=== PATIENT | male | born 1980 | race Caucasian/White ===

== ENCOUNTER 2016-07-03 17:25 | Emergency (ER) | payer SELFPAY ==
[~2016-07-03] VITALS: Ht 182.9 cm; Wt 90.7 kg
[2016-07-03 17:29] VITALS: BP 167/94
--- NOTE | 2016-07-03 18:26 | PHYS DOC ---
Past Medical History Past Medical History: Hypertension Additional Past Medical Histor: Previous MRSA hospitalization Past Surgical History: Other Additional Past Surgical Histo: Dental implants,R)tib fx repair. Alcohol Use: Rarely Drug Use: None Adult General Chief Complaint Chief Complaint: WRIST PAIN [facility] HPI Patient is a 35 year old male presents emergency department stating that he was trying to move a soda vending machine yesterday with him in 3 other people. He states that the incident machine causes increased pain to his right wrist as he had to maneuver around. Patient states he has not taken anything for the pain and discomfort. He states that he has some swelling around the wrist area. He is right-hand dominant. Patient is tender over the scaphoid area. Review of Systems Review of Systems Constitutional: Denies fever or chills [] Eyes: Denies change in visual acuity, redness, or eye pain [] HENT: Denies nasal congestion or sore throat [] Respiratory: Denies cough or shortness of breath [] Cardiovascular: No additional information not addressed in HPI [] GI: Denies abdominal pain, nausea, vomiting, bloody stools or diarrhea [] : Denies dysuria or hematuria [] Musculoskeletal: Denies back pain. Left wrist pain and discomfort Integument: Denies rash or skin lesions [] Neurologic: Denies headache, focal weakness or sensory changes [] Allergies Allergies Allergies Coded Allergies Type Severity Reaction Last Updated Verified Cephalexin Monohydrate Allergy Intermediate 09/23/13 Yes Physical Exam Physical Exam Constitutional: Well developed, well nourished, no acute distress, non-toxic appearance. [] HENT: Normocephalic, atraumatic, bilateral external ears normal, oropharynx moist, no oral exudates, nose normal. [] Eyes: PERRLA, EOMI, conjunctiva normal, no discharge. [] Neck: Normal range of motion, no tenderness, supple, no stridor. [] Cardiovascular:Heart rate regular rhythm Lungs & Thorax: no respiratory distress noted Skin: Warm, dry, no erythema, no rash. [] Back: No tenderness Extremities: Left wrist tenderness noted on over the scaphoid area, no cyanosis , no clubbing, ROM intact, no edema. Peripheral pulses 2+ cap refill brisk less than 2 seconds. Range of motion is with the hand with equal remote pilot operator noted. Neurologic: Alert and oriented X 3, normal motor function, normal sensory function, no focal deficits noted. [] Psychologic: Affect normal, judgement normal, mood normal. [] Current Patient Data Vital Signs Vital Signs Date Time Temp Pulse Resp B/P Pulse Ox O2 Delivery O2 Flow Rate FiO2 07/03/16 17:29 98.5 95 18 99 Room Air 98.5 EKG EKG [] Radiology/Procedures Radiology/Procedures [] Course & Med Decision Making Course & Med Decision Making Pertinent Labs and Imaging studies reviewed. (See chart for details) Questionable area of the scaphoid per Dr. Marshall. Patient will be placed in a volar splint with recommendations to follow-up with orthopedic. Ibuprofen 800 mg every 8 hours. Recommended ice packs on 20 minutes off 20 minutes several times a day. Patient will be provided with orthopedic name and number to follow up with as mentioned. Elevation as much as possible. Patient was provided with signs and symptoms to return back to emergency department. Patient agrees with discharge instructions treatment regimens and follow-up recommendations. [] Dragon Disclaimer Dragon Disclaimer This electronic medical record was generated, in whole or in part, using a voice recognition dictation system. Departure Departure Impression: Primary Impression: Left wrist fracture Disposition: HOME, SELF-CARE Condition: STABLE Referrals: NO PCP (PCP) MIKE KENNEY MD Patient Instructions: Splint Care, [id number], Wrist Fracture Additional Instructions: Home to rest Keep the splint in place until followup Keep the splint clean and dry Ice packs on 20 minutes and off 20 minutes several time a day Elevation as much as possible Followup with orthopedic in 5-7 days Return to emergency department as needed for signs and symptoms that become worse. Splinting Splinting : Location: left wrist Splint: volar Pre-Proc Neuro Vasc Exam: normal Post-Proc Neuro Vasc Exam: normal ALFREDO CRABTREE NP Jul 03, 2016 18:25
[2016-07-03] MEDS ORDERED: IBUPROFEN 800 MG TABLET. PO ONE (18:45)
--- NOTE | 2016-07-04 08:50 | RAD ---
Left wrist, 3 views, 07/03/2016: History: Wrist injury, pain No fracture or dislocation is identified. There is moderate diffuse soft tissue swelling about the wrist. IMPRESSION: No acute bony abnormality is detected.
== END 2016-07-03 18:55 | disposition home or self-care (01) ==
LOC: ER 17:25
DX: S62.002A Unspecified fracture of navicular [scaphoid] bone of left wrist, initial encounter for closed fracture (principal); I10 Essential (primary) hypertension; Z88.1 Allergy status to other antibiotic agents; X58.XXXA Exposure to other specified factors, initial encounter; Y93.89 Activity, other specified; Y99.8 Other external cause status; Y92.89 Other specified places as the place of occurrence of the external cause
CPT/HCPCS: 29125; 73110; 99284-25

== ENCOUNTER 2016-09-03 21:44 | Inpatient (IN) | payer SELFPAY ==
[~2016-09-03] VITALS: Ht 180.3 cm; Wt 86.2 kg
[2016-09-03] MEDS ORDERED: ASPIRIN 81 MG TAB.CHEW PO ONE (22:00)
[2016-09-03] MEDS: NITROGLYCERIN SUBLINGUAL 0.4 MG BOTTLE OF 25. SL PRN ×3 (22:07→22:37)
--- NOTE | 2016-09-03 22:19 | PHYS DOC ---
Past Medical History Past Medical History: Hypertension Additional Past Medical Histor: Previous MRSA hospitalization, ENDOCARDITIS Past Surgical History: Tonsillectomy, Other Additional Past Surgical Histo: Dental implants,R)tib fx repair. Alcohol Use: Rarely Drug Use: None Adult General Chief Complaint Chief Complaint: CHEST PAIN HPI HPI Patient is a 35 year old male who presents with chest pain. Patient reports that for the past week he has been having intermittent chest discomfort. 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 Pain accompanied by SOB. Patient reports symptoms similar to past when he had endocarditis. He denies any fever. Patient also has h/o IV drug abuse, but says it has been more than a year since he did this. Review of Systems Review of Systems Constitutional: Denies fever or chills Eyes: Denies change in visual acuity or eye pain HENT: Denies nasal congestion or sore throat Respiratory:Shortness of breath. Denies cough Cardiovascular: L side throbbing chest pain radiating to LUE GI: Denies abdominal pain, nausea, vomiting, bloody stools or diarrhea : Denies dysuria or hematuria Musculoskeletal: Denies back pain or joint pain Integument: Denies rash or skin lesions Neurologic: Denies headache, focal weakness or sensory changes Current Medications Current Medications Current Medications Medications (Trade) Dose Ordered Sig/Andrae Start Time Stop Time Status Last Admin Dose Admin Aspirin (Children'S Aspirin) 324 mg 1X ONCE 09/03/16 22:00 09/03/16 22:01 DC 09/03/16 22:06 324 MG Fentanyl Citrate (Fentanyl 5ml Vial) 5 mcg 1X ONCE 09/03/16 22:45 09/03/16 22:46 DC Heparin Sodium (Porcine) 10,000 unit STK-MED ONCE 09/03/16 22:32 09/03/16 22:33 DC Heparin Sodium (Porcine) 2150 unit 2,150 unit PRN Q6HRS PRN 09/03/16 22:45 Heparin Sodium/ Dextrose 500 ml @ As Directed STK-MED ONCE 09/03/16 22:29 09/03/16 22:30 DC Heparin Sodium/ Sodium Chloride 1,000 unit 1X ONCE 09/03/16 22:45 09/03/16 22:46 DC Iohexol (Omnipaque 300 Mg/ml) 100 ml 1X ONCE 09/03/16 22:45 09/03/16 22:46 DC Lidocaine HCl 20 ml 1X ONCE 09/03/16 22:45 09/03/16 22:46 DC Midazolam HCl (Versed) 5 mg 1X ONCE 09/03/16 22:45 09/03/16 22:46 DC Nitroglycerin (Nitrostat) 0.4 mg PRN Q5MIN PRN 09/03/16 22:00 09/04/16 03:00 DC 09/03/16 22:37 0.4 MG Allergies Allergies Allergies Coded Allergies Type Severity Reaction Last Updated Verified Cephalexin Monohydrate Allergy Intermediate 09/23/13 Yes acetaminophen Allergy Unknown Swelling 09/03/16 Yes Physical Exam Physical Exam Constitutional: Well developed, well nourished, non-toxic appearance HENT: Normocephalic, atraumatic, bilateral external ears normal Eyes: EOMI, conjunctiva normal, no discharge Neck: Normal range of motion, no stridor Cardiovascular: Heart rate normal, regular rhythm, no murmur Lungs & Thorax: Bilateral breath sounds clear to auscultation Abdomen: Bowel sounds normal, soft, non-distended, no TTP Skin: Warm, dry, no erythema, no rash Extremities: No obvious deformity, no edema Neurologic: Alert and oriented X 3, no gross deficits noted Psychologic: Affect normal, judgement normal, mood normal Current Patient Data Vital Signs Vital Signs Date Time Temp Pulse Resp B/P Pulse Ox O2 Delivery O2 Flow Rate FiO2 09/03/16 23:00 106 130/63 95 Room Air 09/03/16 21:50 98.3 18 98.3 Lab Values Laboratory Tests Test 09/03/16 22:14 09/03/16 22:17 09/03/16 22:22 09/03/16 22:30 POC Troponin I 0.00ng/ml (<0.08) POC Hemoglobin 16.0g/dL (14-18) POC Hematocrit 47% (37-52) POC Sodium 138mmol/L (135-145) POC Potassium 3.9mmol/L (3.5-5.0) POC Chloride 100mmol/L (98-110) POC Total CO2 24mmol/L (23-32) Anion Gap 19mmol/L (6-14) H 8 (6-14) POC Blood Urea Nitrogen 9mg/dL (8-26) POC Creatinine 0.9mg/dL (0.5-1.4) Glucose Level 97mg/dL (70-99) 100mg/dL (70-99) H POC Ionized Calcium (Ana) 1.12mmol/L (1.13-1.32) L White Blood Count 12.8x10^3/uL (4.0-11.0) H Red Blood Count 4.97x10^6/uL (4.30-5.70) Hemoglobin 13.6g/dL (13.0-17.5) Hematocrit 41.0% (39.0-53.0) Mean Corpuscular Volume 83fL (79-100) Mean Corpuscular Hemoglobin 27pg (25-35) Mean Corpuscular Hemoglobin Concent 33g/dL (31-37) Red Cell Distribution Width 16.4% (11.5-14.5) H Platelet Count 252x10^3/uL (140-400) Neutrophils (%) (Auto) 81% (31-73) H Lymphocytes (%) (Auto) 13% (24-48) L Monocytes (%) (Auto) 5% (0-9) Eosinophils (%) (Auto) 0% (0-3) Basophils (%) (Auto) 1% (0-3) Neutrophils # (Auto) 10.3x10^3uL (1.8-7.7) H Lymphocytes # (Auto) 1.6x10^3/uL (1.0-4.8) Monocytes # (Auto) 0.6x10^3/uL (0.0-1.1) Eosinophils # (Auto) 0.1x10^3/uL (0.0-0.7) Basophils # (Auto) 0.1x10^3/uL (0.0-0.2) Sodium Level 136mmol/L (136-145) Potassium Level 3.7mmol/L (3.5-5.1) Chloride Level 101mmol/L (98-107) Carbon Dioxide Level 27mmol/L (21-32) Blood Urea Nitrogen 11mg/dL (8-26) Creatinine 1.0mg/dL (0.7-1.3) Estimated GFR (Cockcroft-Gault) 84.5 Lactic Acid Level 1.0mmol/L (0.4-2.0) Calcium Level 9.2mg/dL (8.5-10.1) Troponin I Quantitative < 0.017ng/mL (0.000-0.055) Prothrombin Time 13.9SEC (11.7-14.0) Prothrombin Time INR 1.1 (0.8-1.1) PTT 116SEC (24-38) H Laboratory Tests 09/03/16 22:22 Laboratory Tests 09/03/16 22:17 09/03/16 22:22 EKG EKG EKG (my read): sinus rhythm, rate 100, normal axis, intervals wnl, ST elevation leads V2/avL Radiology/Procedures Radiology/Procedures CXR (my read): No acute abnormality Course & Med Decision Making Course & Med Decision Making Pertinent Labs and Imaging studies reviewed. (See chart for details) Patient is 35-year-old male who presents with chest pain and shortness of breath. EKG concerning, initially activated as STEMI. Aspirin, nitroglycerin, heparin ordered. EKG, chest x-ray, labs ordered to evaluate. After speaking with Drs. Dexter and Nathalia (after both had reviewed EKG), decision made to cancel STEMI activation. Will continue heparin gtt overnight. Discussed plan with patient, who pain is improved after nitro. Patient without fever while in the emergency department; however once he reached the floor he spiked a fever, so I ordered penicillin G and ceftriaxone to cover for possible infectious endocarditis. After discussion with pharmacy ([facility]), will change this to vancomycin. Discussed with Dr. Parks, will admit under his care for further evaluation and treatment. Dragon Disclaimer Dragon Disclaimer This electronic medical record was generated, in whole or in part, using a voice recognition dictation system. Departure Departure Impression: Primary Impression: Chest pain Additional Impressions: SOB (shortness of breath) Abnormal EKG Disposition: ADMITTED INPATIENT Admitting Physician: Viviana Parks Condition: STABLE Referrals: NO PCP (PCP) Problem Qualifiers ANA STERLING MD Sep 03, 2016 22:19
[2016-09-03 22:22] LABS: POTASSIUM ISTAT 3.9 mmol/L (3.5-5.0)
[2016-09-03] MEDS ORDERED: HEPARIN 25,000UTS/500ML PREMIX 500 ML IV ONE (22:29)
[2016-09-03] MEDS ORDERED: HEPARIN for IV BOLUS 10,000 UNIT/10 ML VIAL. ONE ×2 (22:29→22:32)
[2016-09-03] MEDS ORDERED: LIDOCAINE 2% 20 ML VIAL. ONE (22:32)
[2016-09-03] MEDS ORDERED: FENTANYL PF 250 MCG/5 ML VIAL. ONE (22:32)
[2016-09-03] MEDS ORDERED: MIDAZOLAM HCL/PF 5 MG/5 ML VIAL ONE (22:33)
[2016-09-03] MEDS ORDERED: IOHEXOL 300 MG/ML 100ML VIAL. ONE (22:34)
[2016-09-03 22:37] LABS: BASO # 0.1 x10^3/uL (0.0-0.2); BASO % 1 % (0-3); EOS % 0 % (0-3); HEMOGLOBIN 13.6 g/dL (13.0-17.5); LYMPH # 1.6 x10^3/uL (1.0-4.8); LYMPH % 13 % (24-48); MEAN CORPUSCULAR HEMOGLOBIN 27 pg (25-35); MEAN CORPUSCULAR HGB CONC 33 g/dL (31-37); MEAN CORPUSCULAR VOLUME 83 fL (79-100); MONO % 5 % (0-9); NEUT % 81 % (31-73); PLATELET COUNT 252 x10^3/uL (140-400); RED BLOOD COUNT 4.97 x10^6/uL (4.30-5.70); RED CELL DISTRIBUTION WIDTH 16.4 % (11.5-14.5); WHITE BLOOD COUNT 12.8 x10^3/uL (4.0-11.0)
[2016-09-03] MEDS ORDERED: HEPARIN for IV BOLUS 10,000 UNIT/10 ML VIAL. IV PRN (22:45)
[2016-09-03] MEDS ORDERED: IOHEXOL 300 MG/ML 100ML VIAL. IART ONE (22:45)
[2016-09-03] MEDS ORDERED: HEPARIN for IV BOLUS 10,000 UNIT/10 ML VIAL. IV ONE (22:45)
[2016-09-03] MEDS ORDERED: HEPARIN 25,000UTS/500ML PREMIX 500 ML IV PRN (22:45)
[2016-09-03] MEDS ORDERED: FENTANYL PF 250 MCG/5 ML VIAL. IV ONE (22:45)
[2016-09-03] MEDS ORDERED: LIDOCAINE 2% 20 ML VIAL. IJ ONE (22:45)
[2016-09-03] MEDS ORDERED: MIDAZOLAM HCL/PF 5 MG/5 ML VIAL IV ONE (22:45)
[2016-09-03 22:56] LABS: CALCIUM 9.2 mg/dL (8.5-10.1); GFR 84.5; POTASSIUM 3.7 mmol/L (3.5-5.1)
[2016-09-03 23:02] LABS: INR 1.1 (0.8-1.1); PROTHROMBIN TIME PATIENT 13.9 SEC (11.7-14.0)
[2016-09-03] MEDS ORDERED: MORPHINE SULFATE 4 MG/ML DISP.SYRIN. IV ONE (23:15)
[2016-09-03] MEDS ORDERED: ONDANSETRON PF 4 MG/2 ML VIAL. IV PRN (23:30)
[2016-09-03] MEDS ORDERED: NITROGLYCERIN SUBLINGUAL 0.4 MG BOTTLE OF 25. SL PRN (23:30)
[2016-09-04] VITALS (9 sets, daily range): BP systolic 135–151; BP diastolic 81–101
--- NOTE | 2016-09-04 00:03 | ACF ---
Admission Forms Criteria CARDIOLOGY GRG Clinical Indications for Admission to Inpatient Care ( Place 'X' for any and all applicable criteria): Hospital admission is needed for appropriate care of the patient because of ANY ONE of the following (1): [ ] I. Hemodynamic instability as indicated by ALL of the following (1)(2)(3) (4)(5) [ ]a) Vital signs or other findings not as expected for chronic patient condition or baseline [ ]b) Instability indicated by ANY ONE of the following: [ ]i) Hypotension [ ]ii) Symptomatic Tachycardia unresponsive to treatment ( e.g., analgesia, fluids, sedation as indicated) [ ]iii) Inadequate perfusion indicated by ANY ONE of the following: [ ] 1) Lactic acidosis (> 2 mmol/L) [ ] 2) New abnormal capillary refill (> 3 seconds) [ ] 3) Reduced urine output [ ] 4) New altered mental status [ ]iv) Orthostatic vital sign changes unresponsive to treatment (e.g., fluids) [ ]v) IV inotropic or vasopressor medication required to maintain adequate blood pressure or perfusion [ ] II. Severe heart failure as indicated by ANY ONE of the following(17)(18) [ ]a) Respiratory distress [ ]b) Hypotension [ ]c) Anasarca (refractory to outpatient therapy) [ ]d) Cardiac arrhythmias of immediate concern [ ]e) Myocardial ischemia [ ] III. Cardiac arrhythmias or findings of immediate concern indicated by ANY ONE of the following (19)(20): [ ] a) Heart rhythms that are inherently dangerous or unstable indicated by ANY ONE of the following (21)(22)(23): [ ] i) Resuscitated ventricular fibrillation or cardiac arrest [ ] ii) Ventricular escape rhythm [ ] iii) Sustained ventricular tachycardia (30 seconds or more of ventricular rhythm at greater than 100 beats per minute) [ ] iv) Nonsustained ventricular tachycardia and ANY ONE of the following: [ ] 1) Suspected cardiac ischemia as cause or consequence of ventricular tachycardia [ ] 2) In setting of acute myocarditis [ ] b) Unstable cardiac conduction defects indicated by ANY ONE of the following(23)(24)(25) [ ] i) Type II second-degree atrioventricular block [ ]ii) Third-degree atrioventricular block [ ]iii) New-onset left bundle branch block with suspected myocardial ischemia [ ]c) Any heart rhythm and ANY ONE of the following (21)(22)(26)(27) (28) [ ] i) Continuous long-term ECG monitoring needed (e.g., initiation of drug requiring monitoring for more than 24 hours) [ ] ii) Patient has automatic implanted cardioverter defibrillator that is repeatedly firing, malfunctioning, or in need of immediate adjustment of settings beyond the scope of ambulatory or observation care [ ]d) Heart rhythms of concern due to ANY ONE of the following: [ ] i) Hypotension [ ] ii) Respiratory distress [ ] iii) Association with other significant symptoms (e.g., bradycardia with syncope or ongoing dizziness, supraventricular tachycardia with chest pain (14)(15)(17) [ ] IV. Monitoring for cardiac contusion beyond the scope of observation care needed [A](30)(31)(32) [ ] V. Surgical or device complication (e.g., valve replacement complication , pacemaker dysfunction) (35)(41)(44)(45)(46) [ ] . Inpatient palliative care needed. [B](49) Also use Inpatient Palliative Care Criteria [ ] VII. Nonbacterial thrombotic (marantic) endocarditis (36)(43)(47)(48) [X] VIII. Cardiology condition, symptom, or finding for which emergency and observation care has failed or are not considered appropriate. [ ] IX. Acute valvular disease requiring inpatient as indicated by ANY ONE of the following (41) [ ]a) Acute valvular regurgitation (42) [ ]b) Noninfectious valvulitis (43) [ ]c) Obstructive valve thrombosis [ ]d) Paravalvular leak [ ]e) Other significant valvular disorder remaining after emergency or observation level of care (as appropriate) [ ]X. Pericardial disease requiring inpatient treatment as indicated by ANY ONE of the following (33)(34)(35)(36)(37) [ ]a) Suspected tamponade (38)(39)(40) [ ]b) Hemopericardium [ ]c) Other significant pericardial disorder remaining after emergency or observation level of care (as appropriate) [ ] XI. Cardiac ischemia beyond scope of emergency and observation care. [ ] XII. Hypertension requiring inpatient treatment as indicated by ANY ONE of the following (6)(7)(8) [ ]a) SBP greater than 220 mm Hg or DBP greater than 120 mmHg despite treatment [ ]b) SBP greater than 140 mm Hg or DBP greater than 100 mm Hg with evidence of acute end organ damage as indicated by ANY ONE of the following [ ] i) Encephalopathy [ ] ii) Acute renal failure as indicated by new onset of ANY ONE of the following (9)(10)(11)(12)(13) [ ]1) 3-fold rise in serum creatinine from baseline [ ]2) Serum creatinine greater than 4 mg/dL ( 354 micromoles/L) with acute rise greater than 0.5 mg/dL (44.2 micromoles/L) [ ]3) Reduction of more than 75% in estimated glomerular filtration rate from baseline [ ]4) Estimated glomerular filtration rate less than 35 mL/min/1.73m2 (0.59 mL/sec/1.73m2) in child up to 18 years of age [ ]5) Cessation of urine output indicated by ALL of the following [ ]A. Adequate volume status [ ]B. Inadequate urine output as indicated by ANY ONE of the following [ ]a. Urine output less than 0.3 mL/kg/hr for 24 hours [ ]b. Anuria (urine output less than 0.1 mL/kg/hr) for 12 hours [ ] iii) Aortic dissection [ ] iv) Myocardial Ischemia [ ] v) Left ventricular heart failure [ ]vi) Retinal Hemorrhage [ ]vii) Other significant finding [ ]c) Hypertension in child requiring inpatient treatment as indicated by ALL of the following(14)(15)(16) [ ] i) Outpatient treatment not effective, not available, or not appropriate [ ]ii) SBP or DBP greater than 95th percentile for age [ ]iii) Evidence of acute end organ damage as indicated by ANY ONE of the following [ ]1) Altered mental status [ ]2) Acute renal failure as indicated by new onset of ANY ONE of the following(9)(10)(11)(12)(13) [ ]A. 3-fold rise in serum creatinine from baseline [ ]B. Serum creatinine greater than 4 mg/dL (354 micromoles/L) with acute rise greater than 0.5 mg/dL (44.2 micromoles/L) [ ]C. Reduction of more than 75% in estimated glomerular filtration rate from baseline [ ]D. Estimated glomerular filtration rate less than 35 mL/min/1.73m2 (0.59 mL/sec/1.73m2) in child up to 18 years of age [ ]E. Cessation of urine output indicated by ALL of the following [ ]a. Adequate volume status [ ]b. Inadequate urine output as indicated by ANY ONE of the following [ ]i) Urine output less than 0.3 mL/kg/hr for 24 hours [ ]ii) Anuria ( urine output less than 0.1 mL/kg/hr) for 12 hours [ ]3) Severe headache [ ]4) Visual disturbance [ ]5) Retinal hemorrhage [ ]6) Other significant finding [ ]XIII. Complications of transplanted heart indicated by ANY ONE of the following(61): [ ]a) Acute graft rejection requiring inpatient management (eg, intravenous immunosuppression)(62)(63) [ ]b) Acute graft heart failure indicated by ANY ONE of the following(64): [ ]i) Hemodynamic instability [ ]ii) Cardiac arrhythmias of immediate concern [ ]iii) Pulmonary edema that is very severe (eg, mechanical ventilation needed, imminent or likely, need for 100% oxygen to keep oxygen saturation above 90%) [ ]iv) Pulmonary edema that is persistent as indicated by ALL of the following: [ ]1) New need for oxygen therapy to keep oxygen saturation above 90% (or increased FiO2 need from baseline) [ ]2) Has not improved sufficiently with emergency department or observation care IV diuretics or other heart failure treatments[E] [ ]v) Altered mental status that is severe or persistent [ ]vi) Increased creatinine (new on laboratory test) with reduction of more than 50% in estimated glomerular filtration rate from baseline [ ]vii) Progressively (ongoing) rising creatinine (known from past laboratory test) with reduction of more than 25% in estimated glomerular filtration rate from baseline [ ]viii) Acute renal failure [ ]ix) Acute peripheral ischemia (eg, examination shows pulseless, cool, mottled, or cyanotic extremity) [ ]x) Pulmonary artery catheter monitoring needed [ ]xi) Other sign or symptom of heart failure requiring inpatient treatment (ie, too severe or not responsive to outpatient and observation care treatment) [ ]c) Infection requiring inpatient management (eg, Hemodynamic instability, need for intravenous antimicrobial treatment)(66)(67)(68)(69)(70) [ ]d) Cardiac allograft vasculopathy requiring inpatient management ( eg evidence of cardiac ischemia)(71) [ ]e) Other complication of transplanted heart (eg, stroke, severe pulmonary hypertension, severe valvular dysfunction) requiring inpatient management(72) The original [facility] content created by [facility] has been revised. The portions of the content which have been revised are identified through the use of italic text or in bold, and [facility] has neither reviewed nor approved the modified material. All other unmodified content is copyright [facility]. Please see references footnoted in the original [facility] edition 2016 Admission Criteria Met?: Yes MARTY LEYVA Sep 04, 2016 00:03
[2016-09-04] MEDS: IV NORMAL SALINE 1000ML BAG 1,000 ML IV SCH ×2 (00:45→12:28)
[2016-09-04] MEDS ORDERED: IBUPROFEN 800 MG TABLET. PO PRN (00:45)
[2016-09-04 01:07] LABS: OBC FLU VALID
[2016-09-04] MEDS ORDERED: PENICILLIN G K 5,000,000 UNIT in IV NORMAL SALINE 100ML 100 ML IV ONE (02:00)
[2016-09-04] MEDS ORDERED: CEFTRIAXONE SODIUM 2 GM in IV NORMAL SALINE 100ML 100 ML IV ONE (02:00)
[2016-09-04] MEDS ORDERED: VANCOMYCIN PER PHARMACY MC PRN (03:15)
[2016-09-04] MEDS ORDERED: VANCOMYCIN 2 GM in IV NORMAL SALINE 500ML BAG 500 ML IV ONE (03:30)
--- NOTE | 2016-09-04 06:38 | EKG ---
[facility] [address] [place] [address] Test Date: 2016-09-03 Test Time: 21:50:10 Pat Name: NADJA KWOK Department: Room: Gender: [employer]: : 1980 Requested By: ANA STERLING Order Number: [id number] Reading MD: Measurements Intervals [place] Rate: 100 P: 36 CA: 174 QRS: 52 QRSD: 94 T: 46 QT: 310 QTc: 403 Interpretive Statements SINUS RHYTHM QRS(T) CONTOUR ABNORMALITY CONSIDER ANTEROLATERAL MYOCARDIAL DAMAGE POSSIBLY ABNORMAL ECG RI6.01 No previous ECG available for comparison
[2016-09-04 06:47] LABS: BARBITURATES NEG (NEG); BENZODIAZEPINES NEG (NEG); CANNABINOIDS NEG (NEG); COCAINE NEG (NEG); METHADONE NEG (NEG); OPIATES POS (NEG); PHENCYCLIDINE NEG (NEG)
[2016-09-04 06:50] LABS: ETHANOL, URINE NEG (NEG)
--- NOTE | 2016-09-04 07:33 | RAD ---
Indication chest pain. A single view of the chest was obtained. No prior imaging of the chest is available. The heart, pulmonary vessels and mediastinum appear within normal limits. A focal infiltrate in either lung is not seen. There is no pleural fluid or pneumothorax. The visualized bony structures appear grossly intact. IMPRESSION: No acute or focal process is seen in the chest
[2016-09-04] MEDS ORDERED: ONDANSETRON PF 4 MG/2 ML VIAL. IV PRN (07:56)
[2016-09-04] MEDS ORDERED: IBUPROFEN 600 MG TABLET. PO PRN (08:00)
[2016-09-04] MEDS ORDERED: ANTI-COAG MONITOR BY PHARMACY. MC PRN (08:15)
--- NOTE | 2016-09-04 08:25 | PDOC ---
Infectious Disease Note Vital Sign Vital Signs Vital Signs Date Time Temp Pulse Resp B/P Pulse Ox O2 Delivery O2 Flow Rate FiO2 09/04/16 07:00 98.7 78 20 138/93 94 Room Air 98.7 Labs Lab Laboratory Tests Test 09/03/16 22:14 09/03/16 22:17 09/03/16 22:22 09/03/16 22:30 Bedside Troponin I 0.00ng/ml (<0.08) Bedside Hemoglobin 16.0g/dL (14-18) Bedside Hematocrit 47% (37-52) Bedside Sodium 138mmol/L (135-145) Bedside Potassium 3.9mmol/L (3.5-5.0) Bedside Chloride 100mmol/L (98-110) Bedside Total CO2 24mmol/L (23-32) Anion Gap 19mmol/L (6-14) 8 (6-14) Bedside Blood Urea Nitrogen 9mg/dL (8-26) Bedside Creatinine 0.9mg/dL (0.5-1.4) Glucose Level 97mg/dL (70-99) 100mg/dL (70-99) Bedside Ionized Calcium (Ana) 1.12mmol/L (1.13-1.32) White Blood Count 12.8x10^3/uL (4.0-11.0) Red Blood Count 4.97x10^6/uL (4.30-5.70) Hemoglobin 13.6g/dL (13.0-17.5) Hematocrit 41.0% (39.0-53.0) Mean Corpuscular Volume 83fL (79-100) Mean Corpuscular Hemoglobin 27pg (25-35) Mean Corpuscular Hemoglobin Concent 33g/dL (31-37) Red Cell Distribution Width 16.4% (11.5-14.5) Platelet Count 252x10^3/uL (140-400) Neutrophils (%) (Auto) 81% (31-73) Lymphocytes (%) (Auto) 13% (24-48) Monocytes (%) (Auto) 5% (0-9) Eosinophils (%) (Auto) 0% (0-3) Basophils (%) (Auto) 1% (0-3) Neutrophils # (Auto) 10.3x10^3uL (1.8-7.7) Lymphocytes # (Auto) 1.6x10^3/uL (1.0-4.8) Monocytes # (Auto) 0.6x10^3/uL (0.0-1.1) Eosinophils # (Auto) 0.1x10^3/uL (0.0-0.7) Basophils # (Auto) 0.1x10^3/uL (0.0-0.2) Sodium Level 136mmol/L (136-145) Potassium Level 3.7mmol/L (3.5-5.1) Chloride Level 101mmol/L (98-107) Carbon Dioxide Level 27mmol/L (21-32) Blood Urea Nitrogen 11mg/dL (8-26) Creatinine 1.0mg/dL (0.7-1.3) Estimated GFR (Cockcroft-Gault) 84.5 Lactic Acid Level 1.0mmol/L (0.4-2.0) Calcium Level 9.2mg/dL (8.5-10.1) Troponin I Quantitative < 0.017ng/mL (0.000-0.055) Prothrombin Time 13.9SEC (11.7-14.0) Prothromb Time International Ratio 1.1 (0.8-1.1) Activated Partial Thromboplast Time 116SEC (24-38) Test 09/04/16 00:30 09/04/16 06:20 Influenza Type A Antigen Negative (NEGATIVE) Influenza Type B Antigen Negative (NEGATIVE) Urine Opiates Screen Pos (NEG) Urine Methadone Screen Neg (NEG) Urine Barbiturates Neg (NEG) Urine Phencyclidine Screen Neg (NEG) Urine Amphetamine/Methamphetamine Pos (NEG) Urine Benzodiazepines Screen Neg (NEG) Urine Cocaine Screen Neg (NEG) Urine Cannabinoids Screen Neg (NEG) Urine Ethyl Alcohol Neg (NEG) Objective Assessment Fever Leukocytosis Chest pain H/O IVDU Plan Plan of Care check influenza [facility] BINU HESS MD Sep 04, 2016 08:25
[2016-09-04] MEDS: MORPHINE SULFATE 4 MG/ML DISP.SYRIN. IV PRN ×4 (08:27→19:43)
[2016-09-04] MEDS ORDERED: REGADENOSON 0.4 MG/5 ML DISP.SYRIN. IV ONE (08:45)
--- NOTE | 2016-09-04 09:38 | PDOC2 ---
EDGAR SINGH RETURNING OFFICER 09/04/16 0938: CARDIAC CONSULT DATE OF CONSULT Date of Consult DATE: 09/04/16 TIME: 09:33 REASON FOR CONSULT Reason for Consult: Chest Pain Shortness of breath Abnormal EKG REFERRING PHYSICIAN Referring Physician: Dr. Herrmann SOURCE Source: Chart review, Patient HISTORY OF PRESENT ILLNESS HISTORY OF PRESENT ILLNESS This is a 35 yo male who presented with complaints of chest pain. Patient reports pain began about a week ago. Has basically been dull pain all week. 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 Describes pain as aching and stabbing. Radiates to his left arm. Deep breath and certain movements seems to worsen pain. Denies any associated palpitations, dizziness, diaphoresis, SOA, GIBBS, or nausea/vomiting. H/o of IV drug use; last used 2 years. Denies any present drug use although urine drugs screen positive for methamphetamines and opiates. Reports extended hospitalization approximately 4 years ago for endocarditis. Patient reports pain is very similar to what he previously experienced. PAST MEDICAL HISTORY Cardiovascular: Other (endocarditis ) Pulmonary: No pertinent hx CENTRAL NERVOUS SYSTEM: Other (no pertinent hx ) GI: No pertinent hx Heme/Onc: No pertinent hx Hepatobiliary: No pertinent hx Psych: Addictions (IV drug abuse ) Rheumatologic: No pertinent hx Infectious disease: No pertinent hx ENT: No pertinent hx Renal/: No pertinent hx Endocrine: No pertinent hx Dermatology: No pertinent hx PAST SURGICAL HISTORY Past Surgical History: No pertinent history FAMILY HISTORY Family History: Stroke SOCIAL HISTORY Smoke: 1 pack per day ALCOHOL: none Drugs: Crystal meth Lives: with Family CURRENT MEDICATIONS CURRENT MEDICATIONS Current Medications Medications (Trade) Dose Ordered Sig/Andrae Route PRN Reason Start Time Stop Time Status Last Admin Dose Admin Aspirin (Children'S Aspirin) 324 mg 1X ONCE PO 09/03/16 22:00 09/03/16 22:01 DC 09/03/16 22:06 Nitroglycerin (Nitrostat) 0.4 mg PRN Q5MIN PRN SL CP RATING > 1/10 09/03/16 22:00 09/04/16 03:00 DC 09/03/16 22:37 Heparin Sodium (Porcine) 4000 unit 4,000 unit 1X ONCE IV 09/03/16 22:45 09/03/16 22:46 DC 09/03/16 22:32 Heparin Sodium/ Dextrose 500 ml @ 0 mls/hr CONT PRN IV SEE I/O RECORD 09/03/16 22:45 09/03/16 22:34 Morphine Sulfate 4 mg 4 mg PRN Q2HR PRN IV PAIN 09/03/16 23:30 09/04/16 23:29 09/04/16 08:27 Sodium Chloride (Iv Sodium Chloride 0.9% 1000ml Bag) 1,000 ml @ 125 mls/hr Q8H IV 09/04/16 00:45 09/04/16 00:45 Ibuprofen (Motrin) 800 mg PRN Q6HRS PRN PO INFLAMMATION 09/04/16 00:45 09/04/16 08:28 DC 09/04/16 00:56 Vancomycin HCl 1 each 1 each PRN DAILY PRN MC SEE COMMENTS 09/04/16 03:15 09/04/16 03:19 Vancomycin HCl/ Sodium Chloride (Iv Sodium Chloride 0.9% 500ml Bag) 500 ml @ 250 mls/hr 1X ONCE IV 09/04/16 03:30 09/04/16 05:29 DC 09/04/16 03:33 ALLERGIES ALLERGIES: Coded Allergies: Cephalexin Monohydrate (Verified Allergy, Intermediate, 09/23/13) acetaminophen (Verified Allergy, Unknown, Swelling, 09/03/16) ROS Review of System 14 point ROS conducted with pertinent positives noted above in HPI. PHYSICAL EXAM General: Alert, Oriented X3, Cooperative, No acute distress HEENT: Atraumatic, Mucous membr. moist/pink Lungs: Clear to auscultation, Normal air movement Heart: Regular rate, Normal S1, Normal S2, Other (left chest tender upon palpation) Abdomen: Soft, No tenderness Extremities: No edema, Normal pulses Skin: No significant lesion Neuro: Normal speech, Sensation intact Psych/Mental Status: Mental status NL, Other (anxious, diaphoretic ) VITALS VITALS Vital Signs Date Time Temp Pulse Resp B/P Pulse Ox O2 Delivery O2 Flow Rate FiO2 09/04/16 08:27 18 94 Room Air 09/04/16 07:00 98.7 78 138/93 98.7 LABS Lab: Laboratory Tests Test 09/03/16 22:14 09/03/16 22:17 09/03/16 22:22 09/03/16 22:30 Bedside Troponin I 0.00ng/ml (<0.08) Bedside Hemoglobin 16.0g/dL (14-18) Bedside Hematocrit 47% (37-52) Bedside Sodium 138mmol/L (135-145) Bedside Potassium 3.9mmol/L (3.5-5.0) Bedside Chloride 100mmol/L (98-110) Bedside Total CO2 24mmol/L (23-32) Anion Gap 19mmol/L (6-14) 8 (6-14) Bedside Blood Urea Nitrogen 9mg/dL (8-26) Bedside Creatinine 0.9mg/dL (0.5-1.4) Glucose Level 97mg/dL (70-99) 100mg/dL (70-99) Bedside Ionized Calcium (Ana) 1.12mmol/L (1.13-1.32) White Blood Count 12.8x10^3/uL (4.0-11.0) Red Blood Count 4.97x10^6/uL (4.30-5.70) Hemoglobin 13.6g/dL (13.0-17.5) Hematocrit 41.0% (39.0-53.0) Mean Corpuscular Volume 83fL (79-100) Mean Corpuscular Hemoglobin 27pg (25-35) Mean Corpuscular Hemoglobin Concent 33g/dL (31-37) Red Cell Distribution Width 16.4% (11.5-14.5) Platelet Count 252x10^3/uL (140-400) Neutrophils (%) (Auto) 81% (31-73) Lymphocytes (%) (Auto) 13% (24-48) Monocytes (%) (Auto) 5% (0-9) Eosinophils (%) (Auto) 0% (0-3) Basophils (%) (Auto) 1% (0-3) Neutrophils # (Auto) 10.3x10^3uL (1.8-7.7) Lymphocytes # (Auto) 1.6x10^3/uL (1.0-4.8) Monocytes # (Auto) 0.6x10^3/uL (0.0-1.1) Eosinophils # (Auto) 0.1x10^3/uL (0.0-0.7) Basophils # (Auto) 0.1x10^3/uL (0.0-0.2) Sodium Level 136mmol/L (136-145) Potassium Level 3.7mmol/L (3.5-5.1) Chloride Level 101mmol/L (98-107) Carbon Dioxide Level 27mmol/L (21-32) Blood Urea Nitrogen 11mg/dL (8-26) Creatinine 1.0mg/dL (0.7-1.3) Estimated GFR (Cockcroft-Gault) 84.5 Lactic Acid Level 1.0mmol/L (0.4-2.0) Calcium Level 9.2mg/dL (8.5-10.1) Troponin I Quantitative < 0.017ng/mL (0.000-0.055) Prothrombin Time 13.9SEC (11.7-14.0) Prothromb Time International Ratio 1.1 (0.8-1.1) Activated Partial Thromboplast Time 116SEC (24-38) Test 09/04/16 00:30 09/04/16 06:20 Influenza Type A Antigen Negative (NEGATIVE) Influenza Type B Antigen Negative (NEGATIVE) Urine Opiates Screen Pos (NEG) Urine Methadone Screen Neg (NEG) Urine Barbiturates Neg (NEG) Urine Phencyclidine Screen Neg (NEG) Urine Amphetamine/Methamphetamine Pos (NEG) Urine Benzodiazepines Screen Neg (NEG) Urine Cocaine Screen Neg (NEG) Urine Cannabinoids Screen Neg (NEG) Urine Ethyl Alcohol Neg (NEG) ASSESSMENT/PLAN ASSESSMENT/PLAN 1. Chest Pain, atypical Doubt ACS initial trop negative- will repeat. If 2nd negative, will discontinue heparin gtt MPI testing underway today to r/o underlying ischemia 2. Hypertension likely secondary to acute pain now normalizes Hydralazine PRN 3. Polysubstance abuse h/o IVDU + meth and opiates upon admission 4. Leukocytosis with fevers IV antibiotic therapy has been initiated per ID 5. H/o endocarditis blood cultures obtained if +, may need JHONATHAN. will follow Problems: ELISSA PAYNE MD 09/04/16 1209: CARDIAC CONSULT ALLERGIES ALLERGIES: Coded Allergies: Cephalexin Monohydrate (Verified Allergy, Intermediate, 09/23/13) acetaminophen (Verified Allergy, Unknown, Swelling, 09/03/16) ASSESSMENT/PLAN ASSESSMENT/PLAN Patient seen and examined. Agree with BIN WORKER's assessment and plan. CP atypical, reproducible and most probably musculoskeletal. OK ruled out. Plan for lexiscan MPI today to rule out ischemia. We will consider JHONATHAN if blood cultures are positive. Thank you for your consultation. Problems: EDGAR SINGH APRN Sep 04, 2016 09:38 ELISSA PAYNE MD Sep 04, 2016 16:51
--- NOTE | 2016-09-04 10:41 | PDOC1 ---
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 Went to ER, at ER given hx admitted Overnight, Temp 102, started on broad spectrum with ID on board and BC drawn abN EKG, initially activated as STEMI but turned out to be not About to have MPI now Denies currently CP UDS positive for opiates and methamphetamines Past Medical History Cardiovascular: HTN, Other (endocarditis ) Pulmonary: No pertinent hx CENTRAL NERVOUS SYSTEM: Other (no pertinent hx ) GI: No pertinent hx Heme/Onc: No pertinent hx Hepatobiliary: No pertinent hx Psych: Addictions (IV drug abuse ) Rheumatologic: No pertinent hx Infectious disease: No pertinent hx ENT: No pertinent hx Renal/: No pertinent hx Endocrine: No pertinent hx Dermatology: No pertinent hx Past Surgical History Past Surgical History: No pertinent history Family History Family History: Stroke Social History Smoke: 1 pack per day ALCOHOL: none Drugs: Crystal meth Current Problem List Problem List Problems Medical Problems: (1) Abnormal EKG Status: Acute (2) Chest pain Status: Acute (3) SOB (shortness of breath) Status: Acute Problems: Current Medications Current Medications Current Medications Aspirin (Children'S Aspirin) 324 mg 1X ONCE PO Last administered on 09/03/16 22:06; Start 09/03/16 at 22:00; Stop 09/03/16 at 22:01; Status DC Nitroglycerin (Nitrostat) 0.4 mg PRN Q5MIN PRN SL CP RATING > 1/10 Last administered on 09/03/16 22:37; Start 09/03/16 at 22:00; Stop 09/04/16 at 03:00 ; Status DC Heparin Sodium (Porcine) 4000 unit 4,000 unit 1X ONCE IV Last administered on 09/03/16 22:32; Start 09/03/16 at 22:45; Stop 09/03/16 at 22:46; Status DC Heparin Sodium/ Dextrose 500 ml @ 0 mls/hr CONT PRN IV SEE I/O RECORD Last administered on 3/23/17at 22:34; Start 09/03/16 at 22:45 Heparin Sodium (Porcine) 2150 unit 2,150 unit PRN Q6HRS PRN IV FOR UFH LEVEL LESS THAN 0.2; Start 09/03/16 at 22:45 Heparin Sodium/ Dextrose 500 ml @ As Directed STK-MED ONCE IV ; Start 09/03/16 at 22:29; Stop 09/03/16 at 22:30; Status DC Heparin Sodium/ Sodium Chloride 1,000 ml @ As Directed STK-MED ONCE .ROUTE ; Start 09/03/16 at 22:32; Stop 09/03/16 at 22:33; Status DC Lidocaine HCl 20 ml STK-MED ONCE .ROUTE ; Start 09/03/16 at 22:32; Stop at 22:33; Status DC Heparin Sodium (Porcine) 10,000 unit STK-MED ONCE .ROUTE ; Start 09/03/16 at 22: 32; Stop 09/03/16 at 22:33; Status DC Fentanyl Citrate (Fentanyl 5ml Vial) 250 mcg STK-MED ONCE .ROUTE ; Start at 22:32; Stop 09/03/16 at 22:33; Status DC Midazolam HCl (Versed) 5 mg STK-MED ONCE .ROUTE ; Start 09/03/16 at 22:33; Stop 09/03/16 at 22:34; Status DC Iohexol (Omnipaque 300 Mg/ml) 100 ml STK-MED ONCE .ROUTE ; Start 09/03/16 at 22: 34; Stop 09/03/16 at 22:35; Status DC Heparin Sodium/ Sodium Chloride 1,000 unit 1X ONCE IART ; Start 09/03/16 at 22: 45; Stop 09/03/16 at 22:46; Status DC Midazolam HCl (Versed) 5 mg 1X ONCE IV ; Start 09/03/16 at 22:45; Stop at 22:46; Status DC Fentanyl Citrate (Fentanyl 5ml Vial) 5 mcg 1X ONCE IV ; Start 09/03/16 at 22:45 ; Stop 09/03/16 at 22:46; Status DC Iohexol (Omnipaque 300 Mg/ml) 100 ml 1X ONCE IART ; Start 09/03/16 at 22:45; Stop 09/03/16 at 22:46; Status DC Lidocaine HCl 20 ml 1X ONCE IJ ; Start 09/03/16 at 22:45; Stop 09/03/16 at 22: 46; Status DC Morphine Sulfate 4 mg 1X ONCE IV ; Start 09/03/16 at 23:15; Stop 09/03/16 at 23 :16; Status DC Ondansetron HCl (Zofran) 4 mg PRN Q8HRS PRN IV NAUSEA/VOMITING; Start 09/03/16 at 23:30; Stop 09/04/16 at 08:00; Status DC Morphine Sulfate 4 mg PRN Q2HR PRN IV PAIN Last administered on 09/04/16 08:27 ; Start 09/03/16 at 23:30; Stop 09/04/16 at 23:29 Nitroglycerin 0.4 mg 0.4 mg PRN Q5MIN PRN SL CHEST PAIN; Start 09/03/16 at 23: 30; Stop 09/04/16 at 23:29 Sodium Chloride (Iv Sodium Chloride 0.9% 1000ml Bag) 1,000 ml @ 125 mls/hr Q8H IV Last administered on 09/04/16 00:45; Start 09/04/16 at 00:45 Ibuprofen 800 mg 800 mg PRN Q6HRS PRN PO INFLAMMATION Last administered on 09/04 00:56; Start 09/04/16 at 00:45; Stop 09/04/16 at 08:28; Status DC Penicillin G Potassium [id number] unit/Sodium Chloride 100 ml @ 100 mls/hr 1X ONCE IV ; Start 09/04/16 at 02:00; Stop 09/04/16 at 02:59; Status UNV Ceftriaxone Sodium/Sodium Chloride (Rocephin/Iv Sodium Chloride 0.9% 100ml) 100 ml @ 200 mls/hr 1X ONCE IV ; Start 09/04/16 at 02:00; Stop 09/04/16 at 02:29; Status UNV Vancomycin HCl 1 each 1 each PRN DAILY PRN MC SEE COMMENTS Last administered on 09/04/16 03:19; Start 09/04/16 at 03:15 Vancomycin HCl 2 gm/Sodium Chloride 500 ml @ 250 mls/hr 1X ONCE IV Last administered on 09/04/16 03:33; Start 09/04/16 at 03:30; Stop 09/04/16 at 05:29 ; Status DC Vancomycin HCl/ Sodium Chloride (Iv Sodium Chloride 0.9% 250ml) 250 ml @ 167 mls/hr Q8H IV ; Start 09/04/16 at 11:30 Vancomycin HCl 1 each 1X ONCE MC ; Start 09/05/16 at 03:00; Stop 09/05/16 at 03 :01 Ondansetron HCl (Zofran) 4 mg PRN Q6HRS PRN IV NAUSEA/VOMITING 1ST CHOICE; Start 09/04/16 at 07:56 Ibuprofen (Motrin) 600 mg PRN Q6HRS PRN PO INFLAMMATION; Start 09/04/16 at 08: 00 Info 1 each 1 each PRN DAILY PRN MC SEE COMMENTS; Start 09/04/16 at 08:15 Piperacillin Sod/ Tazobactam Sod/ Sodium Chloride (Zosyn/Iv Sodium Chloride 0.9 % 50ml) 50 ml @ 100 mls/hr Q6HRS IV ; Start 09/04/16 at 12:00 Regadenoson (Lexiscan) 0.4 mg 1X ONCE IV ; Start 09/04/16 at 08:45; Stop at 08:46; Status DC Active Scripts Active Allergies Allergies: Coded Allergies: Cephalexin Monohydrate (Verified Allergy, Intermediate, 09/23/13) acetaminophen (Verified Allergy, Unknown, Swelling, 09/03/16) ROS General: YES: Other (fevers) PSYCHOLOGICAL ROS: No: Anxiety, Behavioral Disorder, Concentration difficultie , Decreased libido, Depression, Disorientation, Hallucinations, Hostility, Irritablity, Memory difficulties, Mood Swings, Obsessive thoughts, Other, Physical abuse, Sexual abuse, Sleep disturbances, Suicidal ideation Eyes: No Blurry vision, No Decreased vision, No Double vision, No Dry eyes, No Excessive tearing, No Eye Pain, No Itchy Eyes, No Loss of vision, No Other, No Photophobia, No Scotomata, No Uses contacts, No Uses glasses HEENT: No: Epistaxis, Heacaches, Hearing change, Nasal congestion, Nasal discharge, Oral lesions, Other, Sinus pain, Sneezing, Snoring, Sore Throat, Tinnitus, Vertigo, Visual Changes, Vocal changes ALLERGY AND IMMUNOLOGY: No: Hives, Insect Bite Sensitivity, Itchy/Watery Eyes, Nasal Congestion, Other, Post Nasal Drip, Seasonal Allergies Hematological and Lymphatic: No: Bleeding Problems, Blood Clots, Blood Transfusions, Brusing, Night Sweats, Other, Pallor, Swollen Lymph Nodes ENDOCRINE: No: Breast Changes, Galactorrhea, Hair Pattern Changes, Hot Flashes , Malaise/lethargy, Mood Swings, Other, Palpitations, Polydipsia/polyuria, Skin Changes, Temperature Intolerance, Unexpected Weight Changes Breast: No New/Changing Breast Lumps, No Nipple changes, No Nipple discharge, No Other Respiratory: YES: Shortness of breath Cardiovascular: yes Chest Pain Gastrointestinal: No Abdominal Pain, No Constipation, No Diarrhea, No Hematochezia, No Melena, No Nausea, No Other, No Vomiting Genitourinary: No , No , No , No , No , No , No , No Discharge, No Dysuria, No Flank Pain, No Frequency, No Hematuria, No Incontinence, No Other, No Pain, No Retention, No Urgency Musculoskeletal: No Gait Disturbance, No Joint Pain, No Joint Stiffness, No Joint Swelling, No Muscle Pain, No Muscular Weakness, No Other, No Pain In:, No Swelling In: Neurological: No Behavorial Changes, No Bowel/Bladder ControlChng, No Confusion , No Dizziness, No Gait Disturbance, No Headaches, No Impaired Coord/balance, No Memory Loss, No Numbness/Tingling, No Other, No Seizures, No Speech Problems , No Tremors, No Visual Changes, No Weakness Skin: No Acne, No Dry Skin, No Eczema, No Hair Changes, No Lumps, No Mole Changes, No Mottling, No Nail Changes, No Other, No Pruritus, No Rash, No Skin Lesion Changes Physical Exam General: Alert, Oriented X3, Cooperative, No acute distress HEENT: Atraumatic, PERRLA Lungs: Clear to auscultation, Normal air movement Heart: S1S2, RRR, no thrills, no rubs, no gallops, no murmurs Breasts: Normal, Rt breast nml w/o mass, Lt breast nml w/o mass, Nipples normal Abdomen: Normal bowel sounds, Soft, No tenderness, No hepatosplenomegaly, No masses Male Genitals Exam: normal genitalia, normal prostate PELVIC: Nml ext genitalia Extremities: No clubbing, No cyanosis, No edema, Normal pulses, No tenderness/ swelling Skin: No rashes, No breakdown, No significant lesion Neuro: Normal gait, Normal speech, Strength at 5/5 X4 ext, Normal tone, Sensation intact, Cranial nerves 3-12 NL, Reflexes 2+ Psych/Mental Status: Mental status NL, Mood NL Vitals Vitals Vital Signs Date Time Temp Pulse Resp B/P Pulse Ox O2 Delivery O2 Flow Rate FiO2 09/04/16 08:57 18 Room Air 09/04/16 08:27 94 09/04/16 07:00 98.7 78 138/93 98.7 Labs Labs Laboratory Tests Test 09/03/16 22:14 09/03/16 22:17 09/03/16 22:22 09/03/16 22:30 Bedside Troponin I 0.00ng/ml (<0.08) Bedside Hemoglobin 16.0g/dL (14-18) Bedside Hematocrit 47% (37-52) Bedside Sodium 138mmol/L (135-145) Bedside Potassium 3.9mmol/L (3.5-5.0) Bedside Chloride 100mmol/L (98-110) Bedside Total CO2 24mmol/L (23-32) Anion Gap 19mmol/L (6-14) 8 (6-14) Bedside Blood Urea Nitrogen 9mg/dL (8-26) Bedside Creatinine 0.9mg/dL (0.5-1.4) Glucose Level 97mg/dL (70-99) 100mg/dL (70-99) Bedside Ionized Calcium (Ana) 1.12mmol/L (1.13-1.32) White Blood Count 12.8x10^3/uL (4.0-11.0) Red Blood Count 4.97x10^6/uL (4.30-5.70) Hemoglobin 13.6g/dL (13.0-17.5) Hematocrit 41.0% (39.0-53.0) Mean Corpuscular Volume 83fL (79-100) Mean Corpuscular Hemoglobin 27pg (25-35) Mean Corpuscular Hemoglobin Concent 33g/dL (31-37) Red Cell Distribution Width 16.4% (11.5-14.5) Platelet Count 252x10^3/uL (140-400) Neutrophils (%) (Auto) 81% (31-73) Lymphocytes (%) (Auto) 13% (24-48) Monocytes (%) (Auto) 5% (0-9) Eosinophils (%) (Auto) 0% (0-3) Basophils (%) (Auto) 1% (0-3) Neutrophils # (Auto) 10.3x10^3uL (1.8-7.7) Lymphocytes # (Auto) 1.6x10^3/uL (1.0-4.8) Monocytes # (Auto) 0.6x10^3/uL (0.0-1.1) Eosinophils # (Auto) 0.1x10^3/uL (0.0-0.7) Basophils # (Auto) 0.1x10^3/uL (0.0-0.2) Sodium Level 136mmol/L (136-145) Potassium Level 3.7mmol/L (3.5-5.1) Chloride Level 101mmol/L (98-107) Carbon Dioxide Level 27mmol/L (21-32) Blood Urea Nitrogen 11mg/dL (8-26) Creatinine 1.0mg/dL (0.7-1.3) Estimated GFR (Cockcroft-Gault) 84.5 Lactic Acid Level 1.0mmol/L (0.4-2.0) Calcium Level 9.2mg/dL (8.5-10.1) Troponin I Quantitative < 0.017ng/mL (0.000-0.055) Prothrombin Time 13.9SEC (11.7-14.0) Prothromb Time International Ratio 1.1 (0.8-1.1) Activated Partial Thromboplast Time 116SEC (24-38) Test 09/04/16 00:30 09/04/16 06:20 Influenza Type A Antigen Negative (NEGATIVE) Influenza Type B Antigen Negative (NEGATIVE) Urine Opiates Screen Pos (NEG) Urine Methadone Screen Neg (NEG) Urine Barbiturates Neg (NEG) Urine Phencyclidine Screen Neg (NEG) Urine Amphetamine/Methamphetamine Pos (NEG) Urine Benzodiazepines Screen Neg (NEG) Urine Cocaine Screen Neg (NEG) Urine Cannabinoids Screen Neg (NEG) Urine Ethyl Alcohol Neg (NEG) Laboratory Tests Test 09/03/16 22:14 09/03/16 22:17 09/03/16 22:22 09/03/16 22:30 Bedside Troponin I 0.00ng/ml (<0.08) Bedside Hemoglobin 16.0g/dL (14-18) Bedside Hematocrit 47% (37-52) Bedside Sodium 138mmol/L (135-145) Bedside Potassium 3.9mmol/L (3.5-5.0) Bedside Chloride 100mmol/L (98-110) Bedside Total CO2 24mmol/L (23-32) Anion Gap 19mmol/L (6-14) 8 (6-14) Bedside Blood Urea Nitrogen 9mg/dL (8-26) Bedside Creatinine 0.9mg/dL (0.5-1.4) Glucose Level 97mg/dL (70-99) 100mg/dL (70-99) Bedside Ionized Calcium (Ana) 1.12mmol/L (1.13-1.32) White Blood Count 12.8x10^3/uL (4.0-11.0) Red Blood Count 4.97x10^6/uL (4.30-5.70) Hemoglobin 13.6g/dL (13.0-17.5) Hematocrit 41.0% (39.0-53.0) Mean Corpuscular Volume 83fL (79-100) Mean Corpuscular Hemoglobin 27pg (25-35) Mean Corpuscular Hemoglobin Concent 33g/dL (31-37) Red Cell Distribution Width 16.4% (11.5-14.5) Platelet Count 252x10^3/uL (140-400) Neutrophils (%) (Auto) 81% (31-73) Lymphocytes (%) (Auto) 13% (24-48) Monocytes (%) (Auto) 5% (0-9) Eosinophils (%) (Auto) 0% (0-3) Basophils (%) (Auto) 1% (0-3) Neutrophils # (Auto) 10.3x10^3uL (1.8-7.7) Lymphocytes # (Auto) 1.6x10^3/uL (1.0-4.8) Monocytes # (Auto) 0.6x10^3/uL (0.0-1.1) Eosinophils # (Auto) 0.1x10^3/uL (0.0-0.7) Basophils # (Auto) 0.1x10^3/uL (0.0-0.2) Sodium Level 136mmol/L (136-145) Potassium Level 3.7mmol/L (3.5-5.1) Chloride Level 101mmol/L (98-107) Carbon Dioxide Level 27mmol/L (21-32) Blood Urea Nitrogen 11mg/dL (8-26) Creatinine 1.0mg/dL (0.7-1.3) Estimated GFR (Cockcroft-Gault) 84.5 Lactic Acid Level 1.0mmol/L (0.4-2.0) Calcium Level 9.2mg/dL (8.5-10.1) Troponin I Quantitative < 0.017ng/mL (0.000-0.055) Prothrombin Time 13.9SEC (11.7-14.0) Prothromb Time International Ratio 1.1 (0.8-1.1) Activated Partial Thromboplast Time 116SEC (24-38) Test 09/04/16 00:30 09/04/16 06:20 Influenza Type A Antigen Negative (NEGATIVE) Influenza Type B Antigen Negative (NEGATIVE) Urine Opiates Screen Pos (NEG) Urine Methadone Screen Neg (NEG) Urine Barbiturates Neg (NEG) Urine Phencyclidine Screen Neg (NEG) Urine Amphetamine/Methamphetamine Pos (NEG) Urine Benzodiazepines Screen Neg (NEG) Urine Cocaine Screen Neg (NEG) Urine Cannabinoids Screen Neg (NEG) Urine Ethyl Alcohol Neg (NEG) VTE Prophylaxis Ordered VTE Prophylaxis Devices: Yes VTE Pharmacological Prophylaxi: Yes Assessment/Plan Assessment/Plan Chest Pain Hypertension Polysubstance abuse Leukocytosis with fevers H/o endocarditis PLAN: Vanc and zosyn Follow BC Ff up MPI Supportive meds Ibuprofen (allergic to tylenol) CBC DORENE Leone MD Sep 04, 2016 10:41
[2016-09-04] MEDS: VANCOMYCIN 1.25 GM in IV NORMAL SALINE 250ML 250 ML IV SCH ×2 (11:30→19:42)
[2016-09-04] MEDS: PIPERACILLIN/TAZOBACTAM 3.375 GM in IV NORMAL SALINE 50ML 50 ML IV SCH ×3 (12:27→23:44)
[2016-09-04] MEDS ORDERED: hydrALAZINE 20 MG/ML VIAL. IVP PRN (14:00)
--- NOTE | 2016-09-04 16:55 | RAD ---
APPROVED REPORT Test Type: Pharmacological Stress Nurse/Tech: Mariana Blunt R.N. Test Indications: chest pain Cardiac History: htn Medications: see ehr Medical History: see ehr Resting ECG: sr Resting Heart Rate: 85 bpm Resting Blood Pressure: 155/88mmHg Pretest Chest Pain: No chest pain Nurse/Tech Notes lungs cta, heart tones regular Consent: The procedure was explained to the patient in lay terms. Informed consent was witnessed. Carlos eout was entered into [facility]. History and Stress Test performed by Mariana Blunt R.N. Pharm. Details Pharmacologic stress testing was performed using 0.4mg per 5ml of regadenoson given intravenously ove r 7-10 seconds. Stress Symptoms No chest pain or symptoms.Dyspnea, anxiety POST EXERCISE Reason for Termination: Infusion complete Target HR: No Max HR: 144 bpm Max Blood Pressure: 153/89mmHg Chest Pain: No. Arrhythmia: No. ST Change: No. minimal amt of ST depression in mult leads INTERPRETATION Stress EKG Conclusion: Negative for ischemia. Imaging Protocol IMAGE PROTOCOL: Rest Tc-99m/stress Tc-99m 1 day Rest: Stress: Viability: Radiopharm.Tc99m [place]rr[place]g09y Sestamibi [id number] 36.4mCi Duration 15min. 10min. Img Date 09/04/2016 09/04/2016 Inj-Img [id number]. 90min. Rest Admin Site:IV - Left ForearmAdministrator:JERONIMO Belle, ARRT (R)(N) Stress Admin Site: IV - Left ForearmAdministrator: JERONIMO Belle, ARRT (R)(N) STRESS DATA End Diast. Vol.118.0mlAv. Heart Rate99.0bpm End Syst. Vol.33.0mlCO Index BSA0.0L/min Myocardial Pmfk130.0gEject. Ligwlbaj13.0% Stress Rates Pk. Fill Rate2.75EDV/secLVtime Pk. Fill 128.04msec Pk. Empty Rate4.33ESV/secLVtime Pk. Sdegi857.43msec 06/16 Pk. Fill1.59EDV/sec Stress Scores Regional WT1.00Summed WT2.00 Regional WM0.00Summed WM6.00 The rest and stress images show normal perfusion, normal contraction and thickening. LV Perf. Quant 17 Seg. SSS0.00 17 Seg. SRS0.00 17 Seg. SDS0.00 Stress Defect Extent (% LAD)0.00Rest Defect Extent (% LAD)0.00Rev. Defect Extent (% LAD)0.00 Stress Defect Extent (% LCX) 0.00Rest Defect Extent (% LCX)2.50Rev. Defect Extent (% LCX)0.00 Stress Defect Extent (% RCA)0.00Rest Defect Extent (% RCA)0.00Rev. Defect Extent (% RCA)0.00 Stress Defect Extent (% JANY)0.00Rest Defect Extent (% JANY)1.30Rev. Defect Extent (% JANY)0.00 Other Information Quality:Good Risk Assessment: Low Risk Conclusion 1. No evidence of vasodilator stress induced ischemia. 2. Normal myocardial perfusion at stress/rest 3. Normal EF at > 70% 4. Low risk study
[2016-09-04] MEDS ORDERED: IV NORMAL SALINE 1000ML BAG 1,000 ML IV SCH (18:30)
[2016-09-04] MEDS ORDERED: MORPHINE SULFATE 2 MG/ML DISP.SYRIN. IV PRN (23:15)
[2016-09-04] MEDS ORDERED: OXYCODONE IR 5 MG TABLET. PO PRN (23:15)
--- NOTE | 2016-09-05 00:50 | CONS ---
DATE OF CONSULTATION: 09/04/2016 REQUESTING PHYSICIAN: Dr. Parks. REASON FOR CONSULTATION: Fever and chest pain. HISTORY OF PRESENT ILLNESS: This is a 35-year-old gentleman with a history of IV drug use, who says he has not used in the last 1 year. The patient came in with chest pain and pain going into the arm. The patient did not have any nausea, vomiting, diarrhea or fever at home. Here, he has a fever up to 102. Denies any cough. Denies any headache, visual symptoms. The patient has been started on blood culture and started on vancomycin as well as the patient is getting heparin. PAST MEDICAL HISTORY: Positive for IV drug use. The patient had endocarditis about 4 years ago and has had abscesses in the past, but he says he has not had any problem in the last 1 year. SOCIAL HISTORY: Negative for alcohol use or drug use now, he says, but does smoke. ALLERGIES: LISTED ALLERGIC TO CEPHALEXIN, WHICH CAUSED RASH. CURRENT MEDICATIONS: Reviewed. The patient is on vancomycin. REVIEW OF SYSTEMS: As per HPI, all other systems reviewed are negative. PHYSICAL EXAMINATION: GENERAL: Alert, oriented gentleman, not in any distress. VITAL SIGNS: Stable. T-max is 102.2. HEENT: Both pupils are round, reacting. No conjunctival lesion, no lesion in the mouth. NECK: Supple, no JVP, no lymphadenopathy. LUNGS: Clear. HEART: S1, S2 regular. ABDOMEN: Benign. EXTREMITIES: No edema, cyanosis. 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 There are no peripheral stigmata for endocarditis. NEUROLOGIC: The patient is intact. LABORATORY DATA: White count is 12.8, platelets are normal. BUN and creatinine is normal. Lactic acid was normal. Toxicology, urine drug screen is positive for opiates and methamphetamine. Influenza screen was done; it is negative. Chest x-ray is unremarkable. IMPRESSION: 1. Fever, could be viral illness, could be bacterial as he may have used the drugs, although he denies. 2. Leukocytosis. 3. Chest pain. 4. History of IV drug use. 5. History of endocarditis. RECOMMENDATIONS: We will get more blood cultures, continue vancomycin, add Zosyn, supportive care and we will continue to follow. Thank you very much, Dr. Parks for giving me the opportunity to participate in this patient's care. BINU HESS MD DR: CHATA/deanne JOB#: [id number] / [id number]
[2016-09-05] MEDS: VANCOMYCIN 1.25 GM in IV NORMAL SALINE 250ML 250 ML IV SCH (03:30)
[2016-09-05] MEDS: PIPERACILLIN/TAZOBACTAM 3.375 GM in IV NORMAL SALINE 50ML 50 ML IV SCH (05:30)
[2016-09-05 07:32] VITALS: BP 149/96
--- NOTE | 2016-09-05 09:54 | PDOC ---
Provider Note Provider Note Pt left AMA per RN without signing AMA papers and me seeing him today. No Dc summ needed MD BEATA COTA CHERRIE Y MD Sep 05, 2016 09:54
== END 2016-09-05 09:00 | disposition left against medical advice (07) | DRG 313 ==
LOC: ER 21:44 → 2 NORTH 23:12
PROVIDERS: ADMIT Internal Medicine; ATTEND Internal Medicine
DX: R07.89 Other chest pain (principal); D72.829 Elevated white blood cell count, unspecified; F17.200 Nicotine dependence, unspecified, uncomplicated; F19.10 Other psychoactive substance abuse, uncomplicated; I10 Essential (primary) hypertension; R50.9 Fever, unspecified; I25.2 Old myocardial infarction; Z82.3 Family history of stroke; Z86.14 Personal history of Methicillin resistant Staphylococcus aureus infection; Z88.8 Allergy status to other drugs, medicaments and biological substances
CPT/HCPCS: 36415; 71010; 78452; 80047; 80048; 83605; 84484; 85027; 85520; 85610; 85730; 87040; 87205; 87804; 93005; 93017; 96365; 96374; 96375; 96376; A9500; G0481; J2270; J2543; J2785; J3370; J7030; J7040; J7050; 99285-25